=== PATIENT | male | born 1955 | race Caucasian/White ===

== ENCOUNTER 2018-02-24 13:03 | Emergency (ER) | payer OTHER ==
[2018-02-24 13:14] VITALS: BP 138/83; PULSE 93; TEMP 99.2; BMI 27.1
[2018-02-24] MEDS ORDERED: AMOX TR/POT CLAV 875MG/125MG TABLETS (FP) PO ONE (15:28)
[2018-02-24] MEDS ORDERED: AMOX TR/POT CLAV 875MG/125MG TABLETS (FP) ONE (15:34)
--- NOTE | 2018-02-24 15:34 | PDOC ---
History of Present Illness - General Chief Complaint: Laceration Stated Complaint: right ear lac Time Seen by Provider: 02/24/18 13:13 - History of Present Illness Initial Comments: 02/24/18 15:37 62 yo M with MS ( R sided hemiplegia) who p/w R ear laceration s/p mechanical/ slip and fall. Patient reports ambulating near top of stairs w/cane at home (at approximately 1230) and reports his foot becoming entrapped under rug, with subsequent tumble down flight of stairs/10+ steps. Reports landing face first at bottom of steps, but denies LOC, neck injury, or back injury. Denies MAHARAJ, N/V , neck stiffness, vision change, hearing loss. Was able to ambulate with cane immediately following incident. Minimal blood loss, with absent foreign body implantation. Now with right ear laceration. Denies F/C, N/V, CP, SOB, abdominal pain, diarrhea, constipation, urinary complaints, weakness, lightheadedness, sensory changes. PMHx: as noted above. Denies anticoagulation. Does not recall last tetanus. ROS: as noted above SHx:Denies Etoh, tobacco, IVDA. Allergies: NKDA Past History - Past Medical History Allergies/Adverse Reactions: Allergies Allergy/AdvReac Type Severity Reaction Status Date / Time No Known Allergies Allergy Verified 02/24/18 13:08 Home Medications: Ambulatory Orders Carbamazepine [Tegretol -] 200 mg PO BID 03/27/14 Cholecalciferol (Vitamin D3) [Vitamin D] 5,000 unit PO DAILY 03/27/14 Cyanocobalamin [Vitamin B12 -] 500 mcg PO DAILY 03/27/14 Dalfampridine [Ampyra] 10 mg PO BID 03/27/14 Dimethyl Fumarate [Tecfidera] 240 mg PO BID 03/27/14 Glucosamine Sulfate Dipot Chlr [Glucosamine] 1,000 mg PO DAILY 03/27/14 Loratadine [Claritin -] 10 mg PO DAILY PRN 03/27/14 Modafinil [Provigil] 200 mg PO DAILY 03/27/14 Omeprazole [Prilosec] 40 mg PO DAILY 03/27/14 Oxybutynin Chloride [Ditropan Xl] 10 mg PO DAILY 03/27/14 Pregabalin [Lyrica -] 150 mg PO BID 03/27/14 S-Adenosylmethionine Sul Tosyl [Chris-E] 400 mg PO DAILY 03/27/14 Simvastatin [Zocor -] 40 mg PO HS 03/27/14 Testosterone [Androgel] 5 gm TD DAILY 03/27/14 Vardenafil HCl [Levitra] 10 mg PO DAILY PRN 03/27/14 Amoxicillin/Potassium Clav [Augmentin 875-125 Tablet] 1 each PO BID 5 Days #9 tablet MDD 2 tab 02/24/18 COPD: No Hypercholesterolemia: Yes Other medical history: m/s - Suicide/Smoking/Psychosocial Hx Smoking History: Never smoked Hx Alcohol Use: No Drug/Substance Use Hx: No Substance Use Type: None Review of Systems - Review of Systems Comments:: 02/24/18 15:43 GENERAL/CONSTITUTIONAL: No fever or chills. No weakness. HEAD, EYES, EARS, NOSE AND THROAT: + Right ear pain and laceration. No change in vision. No ear discharge. No sore throat. CARDIOVASCULAR: No chest pain or shortness of breath RESPIRATORY: No cough, wheezing, or hemoptysis. GASTROINTESTINAL: No nausea, vomiting, diarrhea or constipation. GENITOURINARY: No dysuria, frequency, or change in urination. MUSCULOSKELETAL: No joint or muscle swelling or pain. No neck or back pain. SKIN: No rash NEUROLOGIC: No headache, vertigo, loss of consciousness, or change in strength/ sensation. ENDOCRINE: No increased thirst. No abnormal weight change HEMATOLOGIC/LYMPHATIC: No anemia, easy bleeding, or history of blood clots. ALLERGIC/IMMUNOLOGIC: No hives or skin allergy. *Physical Exam - Vital Signs Last Vital Signs Temp Pulse Resp BP Pulse Ox 99.2 F 93 H 18 138/83 96 02/24/18 13:08 02/24/18 13:08 02/24/18 13:08 02/24/18 13:08 02/24/18 13:08 - Physical Exam Comments: 02/24/18 15:43 GENERAL: Awake, alert, and fully oriented, in no acute distress HEAD: normocephalic EYES: PERRLA, EOMI, sclera anicteric, conjunctiva clear ENT: Auricles normal inspection, hearing grossly normal, nares patent, oropharynx clear without exudates. Moist mucosa Right Ear: 3 cm curved/verticle laceration extending from triangular fossa through anthelix and scaphoid fossa. Does not transect through cartilage. Laceration with absent tubercle involvement. Absent foreign body, or active bleeding. Minimal blood loss and clotting, with absent debris.Auricular landmarks well visualized with absent obscuration of borders, and/or hematoma formation. NECK: Normal ROM, supple, no lymphadenopathy, JVD, or masses LUNGS: No distress, speaks full sentences, clear to auscultation bilaterally HEART: Regular rate and rhythm, normal S1 and S2, no murmurs, rubs or gallops, peripheral pulses normal and equal bilaterally. ABDOMEN: Soft, nontender, normoactive bowel sounds. No guarding, no rebound. No masses EXTREMITIES : Normal inspection, Normal range of motion, no edema. No clubbing or cyanosis. NEUROLOGICAL: Cranial nerves II through XII grossly intact. Normal speech, normal gait, Left UE and Left LE 1/5 strength. . SKIN: Warm, Dry, normal turgor, no rashes or lesions noted Procedures - Laceration/Wound Repair Right Anterior Ear Wound Length: 2.6 to 5.0 cm Wound Explored: clean, no foreign body present Wound's Depth, Shape: superficial, flap Irrigated w/ Saline: Yes Betadine Prep: No Anesthesia: 1% Lidocaine Amount of Anesthetic (ccs): 3 Wound Debrided: minimal Wound Repaired With: Sutures Suture Size/Type: 6:0 Number of Sutures: 5 Layer Closure: No Sterile Dressing Applied: Yes Splint Applied: No Sling Applied: No Medical Decision Making - Medical Decision Making 02/24/18 15:50 62 yo M with MS ( R sided hemiplegia) who p/w R ear laceration s/p mechanical/ slip and fall down 1 flight of steps. VSS, AF, A&OX3. Denies LOC, GCS 15. R ear laceration /non-avulsed with 3 cm extension from triangular fossa through saphoid fossa. No foreign body. Absent auricular hematoma formation. Does not recall last tetanus. No evidence of massive blood loss. Nexus criteria negative C-Spine injury. ED Course: 02/24/18 15:12 R ear irrigated with high pressure NS. 1 % lidocaine (3 cc) injected locally. x 5 6-0 Nylon sutures placed. Pressure dressing applied to area to minimize hematoma formation. 02/24/18 16:12 Patient defers tetanus vaccine until able to discuss use with his multiple sclerosis specialist. Received one dose Augmentin in ED. Sent Augmentin 875 PO BID to pharmacy. Advised to f/u with plastic surgery. Pt. stable for d/c with return precautions. *DC/Admit/Observation/Transfer Diagnosis at time of Disposition: Laceration of right ear Qualifiers: Encounter type: initial encounter Qualified Code(s): S01.311A - Laceration without foreign body of right ear, initial encounter - Discharge Dispostion Disposition: HOME Condition at time of disposition: Stable Decision to Admit order: No - Prescriptions Prescriptions: Amoxicillin/Potassium Clav [Augmentin 875-125 Tablet] 1 each PO BID 5 Days #9 tablet MDD 2 tab - Referrals Referrals: Vitaly Morales MD [Staff Physician] - - Patient Instructions Printed Discharge Instructions: DI for Laceration Repair, DI for Closed Head Injury Additional Instructions: Please return to the emergency department with any new or worsening symptoms or concerns. Please follow up with your primary care physician within 72 hours. Please follow up with plastic surgery doctor within one week. Please take Augmentin 2 times a day for 5 days. Please check as discussed with your multiple sclerosis specialist if you require tetanus vaccine. If so, then you may return to the emergency department to receive vaccine. - Post Discharge Activity - Attestations Physician Attestion: 02/24/18 15:32 I attest to the information provided in this note.
== END 2018-02-24 15:39 | disposition home or self-care (01) ==
LOC: FER 13:03
PROC: 0HQ2XZZ Repair Right Ear Skin, External Approach (ICD-10-PCS; principal; 2018-02-24)
DX: S01.311A Laceration without foreign body of right ear, initial encounter (principal); W10.9XXA Fall (on) (from) unspecified stairs and steps, initial encounter; Y93.89 Activity, other specified; Y92.029 Unspecified place in mobile home as the place of occurrence of the external cause; G35 Multiple sclerosis; E78.00 Pure hypercholesterolemia, unspecified; G81.90 Hemiplegia, unspecified affecting unspecified side
CPT/HCPCS: 99282-25

== ENCOUNTER 2018-07-15 19:41 | Emergency (ER) | payer OTHER ==
--- NOTE | 2018-07-15 19:49 | PDOC ---
History of Present Illness - General History Source: Patient Exam Limitations: No Limitations - History of Present Illness Initial Comments: 07/15/18 20:21 The patient is a 63 year old male with a significant past medical history of MS (right sided hemiplegia) who presents to the ED s/p injury earlier today. Patient states he was cutting roasted chicken when the knife cut into this left middle finger. Patient reports bleeding to the site of injury. Patient does not recall his last tetanus shot. Denies fever or chills. Denies any other symptoms. PAST MEDICAL HISTORY: MS (right sided hemiplegia) PAST SURGICAL HISTORY: no significant history FAMILY HISTORY: no pertinent history SOCIAL HISTORY: Pt lives with family and is employed. MEDICATIONS: reviewed ALLERGIES: As per nursing notes General: No fevers or chills, no weakness, no weight loss HEENT: No change in vision. No sore throat,. No ear pain CardioVascular: No chest pain or shortness of breath Respiratory:No cough, or wheezing. Gastrointestinal: no nausea, vomiting, diarrhea or constipation, No rectal bleeding Genitourinary: No dysuria, hematuria, or frequency Musculoskeletal: No joint or muscle pain or swelling Neurologic: No headache, vertigo, dizziness or loss of consciousness Psychiatric: nor depression Skin: + finger injury. No rashes or easy bruising Endocrine: no increased thirst or abnormal weight change Allergic: no skin or latex allergy All other systems reviewed and normal GENERAL: The patient is awake, alert, and fully oriented, in no acute distress. HEAD: Normal with no signs of trauma. EYES: Pupils equal, round and reactive to light, extraocular movements intact, sclera anicteric, conjunctiva clear. EXTREMITIES: Normal range of motion, no edema. NEUROLOGICAL: Normal speech, normal gait. PSYCH: Normal mood, normal affect. SKIN: + On the left middle finger there is a small approximately 2x3 ml oval shaped avulsion with minimal bleeding. Warm, Dry, normal turgor, no rashes. <Arabella Arias - Last Filed: 07/15/18 20:20> - General History Source: Patient Exam Limitations: No Limitations - History of Present Illness Initial Comments: A portion of this note was documented by scribe services under my direction. I have reviewed the details of the note, within reason, and agree with the documentation. The case summary and management plan written by me. 07/15/18 20:21 This is a 63-year-old male who comes in complaining of a small laceration to his left middle finger. Laceration was avulsion type laceration with some minimal bleeding area and I attempted to Dermabond it however was unable to sealed with Dermabond so ended up using Surgicel and a Band-Aid on it. Patient was offered a tetanus shot he did not want a tetanus shot and wanted to sleep with his specialist. Of note patient was here back in February and was recommended to get a tetanus shot which she also deferred. This wound is not a tetanus prone wounds so patient will follow up with his specialist for the tetanus. 07/15/18 20:23 <Paty Bustillos I - Last Filed: 07/15/18 20:23> - General Chief Complaint: Laceration Stated Complaint: LH 3RD FINGER LAC Time Seen by Provider: 07/15/18 19:46 Past History <Arabella Arias - Last Filed: 07/15/18 20:20> - Past Medical History COPD: No Hypercholesterolemia: Yes - Suicide/Smoking/Psychosocial Hx Smoking History: Never smoked Hx Alcohol Use: No Drug/Substance Use Hx: No Substance Use Type: None <Paty Bustillos I - Last Filed: 07/15/18 20:23> - Past Medical History Allergies/Adverse Reactions: Allergies Allergy/AdvReac Type Severity Reaction Status Date / Time No Known Allergies Allergy Verified 02/24/18 13:08 Home Medications: Ambulatory Orders Carbamazepine [Tegretol -] 200 mg PO BID 03/27/14 Cholecalciferol (Vitamin D3) [Vitamin D] 5,000 unit PO DAILY 03/27/14 Cyanocobalamin [Vitamin B12 -] 500 mcg PO DAILY 03/27/14 Dalfampridine [Ampyra] 10 mg PO BID 03/27/14 Dimethyl Fumarate [Tecfidera] 240 mg PO BID 03/27/14 Glucosamine Sulfate Dipot Chlr [Glucosamine] 1,000 mg PO DAILY 03/27/14 Loratadine [Claritin -] 10 mg PO DAILY PRN 03/27/14 Modafinil [Provigil] 200 mg PO DAILY 03/27/14 Omeprazole [Prilosec] 40 mg PO DAILY 03/27/14 Oxybutynin Chloride [Ditropan Xl] 10 mg PO DAILY 03/27/14 Pregabalin [Lyrica -] 150 mg PO BID 03/27/14 S-Adenosylmethionine Sul Tosyl [Chris-E] 400 mg PO DAILY 03/27/14 Simvastatin [Zocor -] 40 mg PO HS 03/27/14 Testosterone [Androgel] 5 gm TD DAILY 03/27/14 Vardenafil HCl [Levitra] 10 mg PO DAILY PRN 03/27/14 Meloxicam 15 mg PO DAILY 07/15/18 *Physical Exam - Vital Signs Last Vital Signs Temp Pulse Resp BP Pulse Ox 97.6 F 72 16 150/99 99 07/15/18 19:44 07/15/18 19:44 07/15/18 19:44 07/15/18 19:44 07/15/18 19:44 <Arabella Arias - Last Filed: 07/15/18 20:20> *DC/Admit/Observation/Transfer - Attestations Scribe Attestion: 07/15/18 20:21 Documentation prepared by Arabella Arias, acting as center medical specialist for Paty Bustillos MD <Arabella Arias - Last Filed: 07/15/18 20:20> <Paty Bustillos I - Last Filed: 07/15/18 20:23> Diagnosis at time of Disposition: Finger laceration Qualifiers: Encounter type: initial encounter Finger: middle finger Damage to nail status: without damage Foreign body presence: without foreign body Laterality: left Qualified Code(s): S61.213A - Laceration without foreign body of left middle finger without damage to nail, initial encounter - Discharge Dispostion Disposition: HOME Condition at time of disposition: Stable - Referrals Referrals: Spencer Mahoney [Primary Care Provider] - - Patient Instructions Additional Instructions: Leave the Band-Aid and Surgicel in place for at least 24 hours. After that you can remove everything but a little piece of Surgicel will stay stuck to the wound. As a well-healed this will eventually come off. He can trim the rest of the Surgicel off and placed some bacitracin or antibiotic ointment over the piece that is still in the wound. Keep it covered with a Band-Aid for several days until it has scabbed over after that you can leave it open and that heal. Return to the emergency department immediately with ANY new, persistent or worsening symptoms. Continue any medications as previously prescribed by your physician. You should follow up with your primary doctor as soon as possible regarding today's emergency department visit. . Please make sure your doctor reviews the results of your emergency evaluation. Thank you for coming to the Emergency Department today for your care. It was a pleasure to see you today. Please note that your evaluation is INCOMPLETE until you follow-up with your doctor. - Post Discharge Activity
[2018-07-15 19:55] VITALS: BP 150/99; PULSE 72; TEMP 97.6
[2018-07-15 19:56] VITALS: BMI 27.6
== END 2018-07-15 20:24 | disposition home or self-care (01) ==
LOC: FER 19:41
PROC: 0HQGXZZ Repair Left Hand Skin, External Approach (ICD-10-PCS; principal; 2018-07-15)
DX: S61.213A Laceration without foreign body of left middle finger without damage to nail, initial encounter (principal); W26.0XXA Contact with knife, initial encounter; Y93.G1 Activity, food preparation and clean up; Y92.89 Other specified places as the place of occurrence of the external cause; G35 Multiple sclerosis; G81.91 Hemiplegia, unspecified affecting right dominant side; E78.00 Pure hypercholesterolemia, unspecified
CPT/HCPCS: 99282-25

== ENCOUNTER 2021-08-19 11:03 | Emergency (ER) | payer OTHER, MEDICARE ==
[2021-08-19 11:16] VITALS: BP 146/95; PULSE 89; TEMP 98; BMI 28.5
[2021-08-19] MEDS ORDERED: DIPHTH,PERTUSS(ACELL),TET 0.5 ML DISP.SYRIN IM ONE ×2 (11:28→11:49)
== END 2021-08-19 12:42 | disposition home or self-care (01) ==
LOC: FER 11:03
PROC: 3E0234Z Introduction of Serum, Toxoid and Vaccine into Muscle, Percutaneous Approach (ICD-10-PCS; principal; 2021-08-19)
DX: S59.902A Unspecified injury of left elbow, initial encounter (principal)
CPT/HCPCS: 73070-TC-LT-FY; 90471; 90715; 99284-25